=== PATIENT | male | born 1965 | race African-American/Black ===

== ENCOUNTER 2019-11-07 19:43 | Inpatient (IN) | payer BC, OTHER ==
[~2019-11-07] VITALS: Ht 175.3 cm; Wt 122.0 kg
[2019-11-07 19:44] VITALS: BP 92/64
[2019-11-07 19:59] LABS: BASOPHILS 0.9 % (0.0-2.0); EOSINOPHILS 2.4 % (0.0-3.0); HEMATOCRIT 45.7 % (42.0-52.0); HEMOGLOBIN 14.9 gm/dL (14.0-18.0); LYMPHOCYTES 37.9 % (24.0-44.0); MCH 26.6 pg (26.0-34.0); MCHC 32.6 g/dL (28.0-37.0); MCV 81.6 fL (80.0-100.0); MONOCYTES 5.7 % (1.0-8.0); POLYS 53.1 % (36.0-66.0); RDW 14.1 % (10.5-14.5); WBC 13.1 thou/uL (4.0-11.0)
[2019-11-07 20:06] LABS: ANION GAP 13 mmol/L (7-16); BUN 28 mg/dL (7-18); CALCIUM 9.5 mg/dL (8.5-10.1); CHLORIDE 103 mmol/L (98-107); CO2 23 mmol/L (21-32); CREATININE 1.8 mg/dL (0.7-1.3); GLUCOSE 280 mg/dL (74-106); POTASSIUM 3.8 mmol/L (3.5-5.1); SODIUM 139 mmol/L (136-145)
[2019-11-07 20:16] LABS: DIRECT BILIRUBIN < 0.1 mg/dL (<0.1-0.2); MAGNESIUM 1.8 mg/dL (1.8-2.4); SGOT 37 U/L (15-37); SGPT 45 U/L (30-65); TOTAL BILIRUBIN 0.5 mg/dL (0.2-1.0); TOTAL PROTEIN 7.6 g/dL (6.4-8.2); TROPONIN-I <0.06 ng/mL (<0.06)
[2019-11-07 20:18] LABS: PLATELET COUNT 240 thou/uL (150-400)
[2019-11-07 20:19] LABS: LARGE PLATELETS RARE
--- NOTE | 2019-11-07 21:27 | NUR ---
PATIENT'S FRIEND "A-ONE" CALLED AND WOULD LIKE THE PATIENT TO RETURN HIS CALL SOON POSSIBLE
[2019-11-07 22:14] VITALS: BP 89/62
[2019-11-07 22:48] VITALS: BP 126/72
[2019-11-07 22:54] VITALS: BP 87/39
[2019-11-07 23:05] LABS: CHOLESTEROL 170 mg/dL (<200); HDL CHOLESTEROL 32 mg/dL (>40); LDL CHOLESTEROL 104 mg/dL (<100); TC:HDL 5.3 Ratio (Not establshd); TRIGLYCERIDE 174 mg/dL (<150); VLDL 35 mg/dL (<40)
[2019-11-07 23:15] LABS: SERUM ASSESSMENT Clear
[2019-11-08] MEDS ORDERED: LISINOPRIL-HCT1 EAC1 PO (00:03)
[2019-11-08] MEDS ORDERED: ALLOPURINOL 10100 M3 PO (00:04)
[2019-11-08] MEDS ORDERED: NAPROXEN500 MG PO (00:05)
[2019-11-08] MEDS ORDERED: ESCITALOPRA5 MG/5 ML PO (00:06)
[2019-11-08] MEDS ORDERED: SIMVASTATIN80 MG PO (00:07)
[2019-11-08 02:39] LABS: ABSOLUTE NEUTROPHILS 8.3 thou/uL (1.4-8.2); BASOPHILS 0.2 % (0.0-2.0); EOSINOPHILS 0.1 % (0.0-3.0); HEMATOCRIT 40.4 % (42.0-52.0); HEMOGLOBIN 13.1 gm/dL (14.0-18.0); LYMPHOCYTES 13.5 % (24.0-44.0); MCH 26.4 pg (26.0-34.0); MCHC 32.4 g/dL (28.0-37.0); MCV 81.3 fL (80.0-100.0); MONOCYTES 5.7 % (1.0-8.0); PLATELET COUNT 163 thou/uL (150-400); POLYS 80.5 % (36.0-66.0); RBC 4.98 mil/uL (4.50-6.00); RDW 14.2 % (10.5-14.5); WBC 10.4 thou/uL (4.0-11.0)
[2019-11-08 02:44] LABS: CALCIUM 8.5 mg/dL (8.5-10.1); CREATININE 1.8 mg/dL (0.7-1.3); MAGNESIUM 1.8 mg/dL (1.8-2.4); POTASSIUM 4.6 mmol/L (3.5-5.1)
[2019-11-08 04:01] VITALS: BP 107/72
--- NOTE | 2019-11-08 06:15 | NUR ---
ASSUMED CARE OF PATIENT AFTER BEING TRANSFERRED FROM ER TO . PATIENT ON AMIODORONE DRIP CURRENTLY RUNNING AT 0.5MG/MIN AND HAS BEEN MONITORED IN SINUS RHYTHM THROUGHOUT NOC. PATIENT CONTINUES ON ROOM AIR AND NO SOA. PATIENT IS STEADY AND ABLE TO AMBULATE WITHOUT ASSISTANCE. NO PAIN REPORTED BY PATIENT. PRATIENT PROGRESSING WELL TOWARDS GOALS.
[2019-11-08 07:52] VITALS: BP 110/60
--- NOTE | 2019-11-08 09:35 | EKG ---
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 : 1965 Requested By: Christina Mcneal Order Number: [id number] MD: Rl Floyd Measurements Intervals [place] Rate: 84 P: 45 [place]: 160 QRS: 99 QRSD: 105 T: -32 QT: 386 QTc: 457 Interpretive Statements Sinus rhythm Multiform ventricular premature complexes Borderline right axis deviation Repol abnrm, severe global ischemia (LM/MVD) No previous ECG available for comparison Electronically Signed On 11-08-2019 9:33:40 CDT by Rl Floyd [email or web address] <ELECTRONICALLY SIGNED> By: Rl Floyd MD 11/08/1931 07 07 Rl Floyd MD /EPI
--- NOTE | 2019-11-08 09:35 | EKG ---
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: ANGELY : 1965 Requested By: Christina Mcneal Order Number: [id number] MD: Rl Floyd Measurements Intervals [place] Rate: 256 P: -78 MT: 136 QRS: 247 QRSD: 60 T: -86 QT: 236 QTc: 488 Interpretive Statements Wide complex tachycardia Possible VT vs SUPRAVENTRICULAR TACHYCARDIA with aberration Lead(s) aVR,V3 were not used for morphology analysis No previous ECG available for comparison Electronically Signed On 11-08-2019 9:33:18 CDT by Rl Floyd [email or web address] <ELECTRONICALLY SIGNED> By: Rl Floyd MD 11/08/1931 53 53 Rl Floyd MD /EPI
--- NOTE | 2019-11-08 09:36 | EKG ---
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
[2019-11-08 11:10] LABS: CALCIUM 8.9 mg/dL (8.5-10.1); CREATININE 1.3 mg/dL (0.7-1.3); POTASSIUM 4.2 mmol/L (3.5-5.1)
[2019-11-08 11:47] VITALS: BP 107/72
--- NOTE | 2019-11-08 12:01 | 2DMMODE ---
[facility] [place] [address] 2 D/M-MODE ECHOCARDIOGRAM Name: JOVANNA STARK Room #: 219-P ADM IN M.R.#: [id number] Admission: 11/07/19 Attend Phys: Son Huertas MD Discharge: Date of : 69 Report #: [id number] THIS REPORT FOR: cc: FAM - No family physician/PCP FAM - No family physician/PCP Rl Floyd MD ~ APPROVED REPORT Study performed: 11/08/2019 10:25:40 EXAM: Comprehensive 2D, Doppler, and color-flow Echocardiogram Patient Location: Bedside Room #: 219 Status: routine BSA: 2.43 HR: 66 bpm BP: 110/60 mmHg Rhythm: NSR Other Information Study Quality: Adequate Indications Chest Pain Hypertension/HDD HLD, Hx Vtach 2D Dimensions RVDd: 33.12 mm IVSd: 8.52 (7-11mm) LVOT Diam: 26.52 (18-24mm) LVDd: 59.52 mm PWd: 13.07 (7-11mm) Ascending Ao: 37.25 (22-36mm) LVDs: 54.50 (25-40mm) Aortic Root: 40.85 mm IVC: 20.00 mm Volumes Left Atrial Volume (Systole) Single Plane 4CH: 80.02 mL Single Plane 2CH: 78.46 mL LA ESV Index: 36.00 mL/m2 Aortic Valve AoV Peak Sukhjinder.: 0.90 m/s AO Peak Gr.: 3.21 mmHg LVOT Max P.78 mmHg LVOT Max V: 0.67 m/s [facility] [address] [address] 2 D/M-MODE ECHOCARDIOGRAM Name: JOVANNA STARK Room #: 219-P [facility] IN .R.#: [id number] Admission: 11/07/19 Attend Phys: Son Huertas MD Discharge: Date of : 69 Report #: [id number] ASIM Vmax: 4.11 cm2 Mitral Valve E/A Ratio: 1.7 MV Decel. Time: 145.92 ms MV E Max Sukhjinder.: 0.68 m/s MV A Sukhjinder.: 0.40 m/s MV PHT: 42.32 ms IVRT: 86.51 ms Pulmonary Valve PV Peak Sukhjinder.: 0.75 m/s PV Peak Gr.: 2.26 mmHg Tricuspid Valve TR Peak Sukhjinder.: 2.37 m/s RAP Estimate: 5.00 mmHg TR Peak Gr.: 22.47 mmHg PA Pressure: 27.00 mmHg Left Ventricle Left ventricle is dilated. There is normal left ventricular wall thickness. Left ventricular ejection fraction is moderate to severely decreased. LVEF is 25%. Right Ventricle The right ventricle is normal size. The right ventricular systolic function is normal. Atria Left atrium is mildly dilated. The right atrium size is normal. Aortic Valve The aortic valve is normal in structure. Trace aortic regurgitation. There is no aortic valvular stenosis. Mitral Valve The mitral valve is normal in structure. Trace to mild mitral regurgitation. No evidence of mitral valve stenosis. Tricuspid Valve The tricuspid valve is normal in structure. Trace tricuspid regurgitation. PAP is estimated at 27 mmHg. Unable to assess PA pressure. Pulmonic Valve The pulmonary valve is normal in structure. Pulmonic valve is grossly [facility] [address] [place] [address] 2 D/M-MODE ECHOCARDIOGRAM Name: [place] Room #: 219-P ADM IN M.R.#: [id number] Admission: 11/07/19 Attend Phys: Son Huertas MD Discharge: Date of : 69 Report #: [id number] normal in structure. Mild pulmonic regurgitation. Great Vessels The aortic root is normal in size. IVC is normal in size and collapses >50% with inspiration. The inferior vena cava is dilated with a decrease in inspiratory collapse. The inferior vena cava is dilated with no inspiratory collapse. The inferior vena cava is not well visualized. Pericardium There is no pericardial effusion. <Conclusion> Left ventricle is dilated. There is normal left ventricular wall thickness. Left ventricular ejection fraction is moderate to severely decreased. LVEF is 25%. The right ventricle is normal size. The aortic valve is normal in structure. The mitral valve is normal in structure. Trace to mild mitral regurgitation. IVC is normal in size and collapses >50% with inspiration. The inferior vena cava is dilated with a decrease in inspiratory collapse. The inferior vena cava is dilated with no inspiratory collapse. The inferior vena cava is not well visualized. There is no pericardial effusion. <ELECTRONICALLY SIGNED> By: Rl Floyd MD 11/08/19 1159 1159 1159 Rl Floyd MD /INF
--- NOTE | 2019-11-08 19:38 | NUR ---
ASSUMED CARE OF PATIENT AT 0700. ASSESSMENT CHARTED. PATIENT NPO IN AM, CLEAR LIQUID FOR LUNCH AND CHOSE NOT TO EAT, HH/CARB CONTROL DINNER. DENIES CHEST PAIN OR PALPITATIONS. ACCU CHECK AC&HS. AMIO IV CONTINUOUS. HR 70'S. CARDIAC CATH PERFORMED TODAY WITHOUT INTERVENTION. RIGHT GROIN SITE, FREE OF DRAINAGE, HEMATOMA OR EDEMA. OFF BEDREST AT 1700. POST PROCEDURE FLOW SHEET KEPT AND PLACED IN THE CHART. ECHO PERFORMED. PATIENT TO CONTINUE WITH POC.
[2019-11-08 20:26] VITALS: BP 117/78
[2019-11-08 21:52] LABS: URINE BILIRUBIN NEGATIVE (Negative); URINE BLOOD NEGATIVE (Negative); URINE CLARITY CLEAR; URINE COLOR YELLOW; URINE GLUCOSE-RANDOM* 3+ (Negative); URINE KETONES NEGATIVE (Negative); URINE LEUKOCYTES-REFLEX NEGATIVE (Negative); URINE NITRITE-REFLEX NEGATIVE (Negative); URINE PROTEIN (DIPSTICK) NEGATIVE (Negative); URINE SPECIFIC GRAVITY 1.025 (1.005-1.035); URINE UROBILINOGEN 0.2 E.U./dl (0.2-1.0)
[2019-11-09 00:44] VITALS: BP 100/63
[2019-11-09 02:34] LABS: CALCIUM 8.3 mg/dL (8.5-10.1); CREATININE 1.2 mg/dL (0.7-1.3); POTASSIUM 4.2 mmol/L (3.5-5.1)
--- NOTE | 2019-11-09 04:49 | NUR ---
PATIENT ASSESSED AND IS ALERT X 4. SKIN WARM AND DRY. RESP EVEN AND UNLABORD. UP TO BATHROOM VOIDING WELL. RIGHT GROIN SOFT AND HAS NO HEMATOMA OR BRUISING NOTED. TELE SHOWS NSR WITH PAC AND PVC. DENIES ANY PAIN. HAS BILATERAL 1+ EDEMA NOTED. LUNGS CTA. L AC FLUSHES WELL AND RIGHT AC FLUSHES WELL. CONT A AMIO GTT ORDERED. IV SITE HEALTHY. NO O2. NO SKIN ISSUES. LUNGS CTA. VOIDS PER URINAL ALSO. ON HEART HEALTHY DIET. CONT PLAN OF CARE. DENIES ANY CHEST PAIN. CONT TO MONITOR PATIENT. NITRO PASTE Q 6 HOURS .
[2019-11-09 05:38] LABS: GLYCOHEMOGLOBIN (HGB A1C) 10.3 % (4.8-5.6)
[2019-11-09 05:45] VITALS: BP 127/90
[2019-11-09 07:39] VITALS: BP 114/68
--- NOTE | 2019-11-09 11:33 | EKG ---
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 : 1965 Requested By: Tamiko Armendariz Order Number: [id number] MD: Rl Floyd Measurements Intervals [place] Rate: 69 P: 45 MS: 166 QRS: 57 QRSD: 91 T: 49 QT: 435 QTc: 466 Interpretive Statements Sinus rhythm Paired ventricular premature complexes Probable left atrial enlargement Compared to ECG 11/07/2019 21:43:27 Ventricular premature complex(es) now present Myocardial infarct finding no longer present Electronically Signed On 11-09-2019 11:31:03 CDT by Rl Floyd [email or web address] <ELECTRONICALLY SIGNED> By: Rl Floyd MD 11/09/19 1131 0944 Rl Floyd MD /EPI
[2019-11-09 11:35] VITALS: BP 130/92
[2019-11-09 15:42] VITALS: BP 133/86
--- NOTE | 2019-11-09 16:59 | NUR ---
ASSUMED CARE OF PATIENT AT 0700. ASSESSMENT CHARTED. PATIENT DENIES ANY CHEST PAIN OR DISCOMFORT. COVID TEST NEGATIVE. PENDING ICD PLACEMENT TOMORROW. CONSENT SIGNED. PATIENT TO BE NPO AT MIDNIGHT. ENDO CONSULT PLACED. IV AMIO DRIP. SR ON MONITOR WITH INT PVC/PAC. PATIENT TO CONTINUE WITH POC.
[2019-11-09 19:58] VITALS: BP 131/81
--- NOTE | 2019-11-09 23:15 | NUR ---
PT AMBULATING TO BATHROOM INDEPENDENTLY AND IS TOLERATING WELL. DENIES PAIN. PLAN FOR PLACEMENT OF IVC FILTER 11/09. RESTING COMFORTABLY. NO NEEDS VOICED. CALL LIGHT WITHIN REACH. FREQUENT OBSERVATION.
[2019-11-10 04:07] LABS: GLYCOHEMOGLOBIN (HGB A1C) 10.4 % (4.8-5.6)
[2019-11-10 04:15] LABS: PROTIME 10.7 Seconds (9.3-11.4)
[2019-11-10 04:46] LABS: ABSOLUTE NEUTROPHILS 4.3 thou/uL (1.4-8.2); BASOPHILS 0.4 % (0.0-2.0); EOSINOPHILS 2.6 % (0.0-3.0); HEMATOCRIT 40.9 % (42.0-52.0); HEMOGLOBIN 13.5 gm/dL (14.0-18.0); LYMPHOCYTES 21.9 % (24.0-44.0); MCH 26.8 pg (26.0-34.0); MCV 81.2 fL (80.0-100.0); MONOCYTES 8.6 % (1.0-8.0); PLATELET COUNT 152 thou/uL (150-400); POLYS 66.5 % (36.0-66.0); RBC 5.04 mil/uL (4.50-6.00); RDW 13.7 % (10.5-14.5); WBC 6.5 thou/uL (4.0-11.0)
[2019-11-10 05:00] LABS: CALCIUM 8.6 mg/dL (8.5-10.1); CREATININE 1.2 mg/dL (0.7-1.3); POTASSIUM 4.1 mmol/L (3.5-5.1)
--- NOTE | 2019-11-10 05:10 | NUR ---
ASSUMED PT CARE AT 0000. REPORT OBTAINED FROM LEAVING NURSE. REPORT OBTAINED. NO SIGN OF DISTRESS NOTED IN PT. PT IS NPO AFTER MN FOR AN AICD PLACEMENT. PT VERBALIZES UNDERSTANDING. DENIES ANY PAIN. CONTINUE TO MONITOR PATIENT. DENIES ANY FURTHER NEEDS AT THIS TIME.
[2019-11-10 05:47] VITALS: BP 139/104
[2019-11-10 08:00] VITALS: BP 129/86
--- NOTE | 2019-11-10 17:12 | NUR ---
PT ARRIVED BACK FROM ICD PLACEMENT AT APPROX 1600. PT ORIENTED, DROWSY. VSS EXCEPT BP ELEVATED. WILL TREAT WITH BP MEDS PER ORDERS. LEFT CHEST INCISION WELL APPROXIMATED, NO DRAINAGE, NO HEMATOMA. PT DENIES PAIN. O2 SATS WNL ON ROOM AIR. POST PROCEDURE VS INITATED. IMMOBILIZER IN PLACE- WILL FOLLOW ORDERS REGARDING MOBILITY. PT CURRENTLY RESTING IN BED. VSS. IN NO DISTRESS. WILL CONT TO MONITOR. WILL PASS ON REPORT TO SHARI POND.
[2019-11-10 19:39] VITALS: BP 165/85
[2019-11-11 00:45] VITALS: BP 128/77
[2019-11-11 04:45] VITALS: BP 136/78
[2019-11-11 05:49] LABS: CALCIUM 8.4 mg/dL (8.5-10.1); CREATININE 1.2 mg/dL (0.7-1.3); POTASSIUM 3.9 mmol/L (3.5-5.1)
[2019-11-11 08:00] VITALS: BP 146/102
--- NOTE | 2019-11-11 08:15 | NUR ---
A/O X 4.UP TO THE BATHROOM.LEFT ARM IMMOBILIZER MAINTAINED IN PLACE.ON AMIO GTT.DENIES PAIN.MONITOR SHOWS SR.POC CONTINUED.
[2019-11-11] MEDS ORDERED: CARVEDILOL3.125 MG PO ×2 (09:47→09:52)
[2019-11-11] MEDS ORDERED: ASA81BEC PO (09:47)
[2019-11-11] MEDS ORDERED: LISINOPRIL5 MG PO (09:51)
[2019-11-11] MEDS ORDERED: PACERONE 200 M200 M1 PO (09:53)
--- NOTE | 2019-11-11 11:31 | HC ---
[facility] [place] [address] CONSULTATION Name: JOVANNA STARK Room #: 219-P ADM IN M.R.#: [id number] Admission: 11/07/19 Attend Phys: Tal Bourgeois MD Discharge: Date of : 69 Report #: [id number] THIS REPORT FOR: cc: SURI Akers family physician/PCP SURI Akers family physician/PCP Rachel Ventura MD ~ CC: [facility] physician/PCP Tal Bourgeois DATE OF SERVICE: 11/10/2019 CONSULTING PHYSICIAN: Dr. Huertas. REASON FOR CONSULTATION: Uncontrolled type 2 diabetes mellitus, new diagnosis of type 2 diabetes mellitus. HISTORY OF PRESENT ILLNESS: This is a 54-year-old male patient whose medical background is significant for the issues of bronchitis, cardiac arrhythmia, hypertension, hyperlipidemia as well as obesity and obstructive sleep apnea. The patient presented to [facility]'s ER with complaints of shortness of breath, palpitations as well as chest discomfort. The patient was found to have the ventricular tachycardia on arrival and was admitted for further care and monitoring. He underwent a cardioversion shortly after admission and later on was found to have an ejection fraction of 20-25% as well as a recently positive troponin level. The patient does not have a prior diagnosis of type 2 diabetes mellitus, although he spoke vaguely of borderline blood glucose in the past. He does have a family history of type 2 diabetes mellitus. He notes that he has experienced excessive thirst, polyuria and fatigue over the past 2-3 weeks. The patient is known to have hypertension, hyperlipidemia and is on active therapy for both issues. REVIEW OF SYSTEMS: CONSTITUTIONAL: Fatigue, tiredness, but not fever or chills or significant body weight changes. HEENT: Negative for sore throat, sinus pain or ear drainage. PULMONARY: Shortness of breath and cough, but not hemoptysis. CARDIAC: Palpitations, baseline issues with intermittent cardiac arrhythmias, chest pain, but not syncope or presyncope. GASTROINTESTINAL: Intermittent issues with abdominal discomfort, abdominal distention, nausea, but no vomiting. NEUROLOGY: Negative for loss of consciousness, headaches, seizure activity. SKIN: Negative for rash, discoloration, or ongoing issues with ulceration. [address] [address] CONSULTATION Name: PUNTA GORDALEIPSIC Room #: 219-P [facility] IN M.R.#: [id number] Admission: 11/07/19 Attend Phys: Tal Bourgeois MD Discharge: Date of : 69 Report #: [id number] PSYCHIATRIC: Negative for delusions, hallucinations. Otherwise, review of systems noncontributory other than those mentioned in HPI. PAST MEDICAL HISTORY: 1. Asthma. 2. Bronchitis. 3. Cardiac arrhythmia. 4. Hypertension. 5. Hyperlipidemia. 6. Obesity. 7. Obstructive sleep apnea. 8. Gout. 9. Depression. OUTPATIENT MEDICATIONS: Include lisinopril/hydrochlorothiazide 20/12.5 mg 1 daily, allopurinol 100 mg 2 tablets daily, Naprosyn 500 mg p.r.n., escitalopram 10 mg daily and simvastatin 80 mg daily. ALLERGIES: No known drug allergies. FAMILY HISTORY: Noted for type 2 diabetes mellitus. SOCIAL HISTORY: He is single. Denies use of tobacco, alcohol or illicit drugs. PHYSICAL EXAMINATION: GENERAL: Pleasant -[place] male patient who is not in apparent pain or distress. VITAL SIGNS: Blood pressure is 129/86 mmHg, heart rate is 91 beats per minute, respiration 18 per minute, temperature 37.2 degrees Celsius. CONSTITUTIONAL: The patient is lying in bed supine, seems comfortable, not in pain or distress. HEENT: Anicteric sclerae. Intact extraocular motions. NECK: Supple, without JVD, carotid bruits or lymphadenopathy. I do not appreciate thyromegaly. CHEST: Noted for moderate entry bilaterally with scattered rales. No crackles. HEART: Regular rate and rhythm without murmurs or gallops. ABDOMEN: Soft, lax. No tenderness or organomegaly. Has active bowel sounds. EXTREMITIES: Lower extremity exam is noted for trace edema. No skin breaks or ulcerations. NEUROLOGIC: Awake, alert and oriented to time, place and person. The remainder of his examination is nonfocal. PSYCHIATRY: Pleasant, interactive. Normal mood and affect. LABORATORY RESULTS: Blood glucose on arrival was as high as 345 mg/dL. The patient has had multiple readings over 200 mg/dL, but went as low as 149 mg/dL. Otherwise, sodium 136, potassium 4.1, chloride 104, CO2 of 24, anion gap of 8, [address] [address] CONSULTATION Name: JOVANNA STARK Room #: 219-P [facility] IN M.R.#: [id number] Admission: 11/07/19 Attend Phys: Tal Bourgeois MD Discharge: Date of : 69 Report #: [id number] BUN 16, creatinine 1.2, AST 37, total bilirubin 0.5, direct bilirubin ____ 0.1, calcium 8.6, magnesium 1.8, alkaline phosphatase 67, ALT 45, total protein 7.6, albumin 4.0. EGFR 77. Troponin 2.72. Total cholesterol 170, triglycerides 174, HDL 32, LDL 104. White blood count 6.5, hemoglobin 13.5, hematocrit 40.9, platelets 152. Hemoglobin A1c 10.3. TSH 2.35. ASSESSMENT AND PLAN: Type 2 diabetes mellitus. The patient's current laboratory data including the documentation of multiple readings well over 200 mg/dL as well as his hemoglobin A1c of 10.3% provide a firm diagnosis of type 2 diabetes mellitus. The patient was counseled about the pathogenesis of type 2 diabetes mellitus as well as about its implications and the necessity of achieving and maintaining adequate glycemic control to prevent future complications. The patient responded well to treatment with low intensity Humalog supplemental scale and managed to keep a fair amount of his blood glucose checks under 180 mg/dL virtually without scheduled therapy. Eventually, the patient would be a very good candidate for combination of metformin and empagliflozin (Jardiance), which would have the added value of reducing future CVD events in this patient with established cardiovascular disease. In the immediate setting, I would like to avoid both so as to make ample space and a safe outlook for intervention that could be necessary during this hospital stay including pacemaker placement that is scheduled for later today. I will start Tradjenta monotherapy today and continue to support him with Humalog supplemental scale low intensity as well as monitor blood glucose values a.c. and at bedtime. The plan of starting metformin and Jardiance will be postponed until we have a definitive discharge plan. Hypertension. The patient's level of blood pressure control is adequate. He is to continue with the same. Hyperlipidemia. The patient is maintained on high dose simvastatin therapy. His LDL cholesterol is at 103 mg/dL. I agree with the conversion to atorvastatin 80 mg at bedtime with the hope of achieving target LDL control of 70 mg/dL or less given the documentation of type 2 diabetes mellitus and cardiovascular disease. Nonsustained V-tach. The patient is undergoing pacemaker placement later today by Dr. Floyd. I certainly appreciate this consultation by Dr. Huertas. <ELECTRONICALLY SIGNED> By: Rachel Ventura MD 11/11/19 1131 0928 1153 Rachel Ventura MD /nt
[2019-11-11 12:00] VITALS: BP 167/96
[2019-11-11] MEDS ORDERED: LIPITOR80 MG PO (12:50)
[2019-11-11] MEDS ORDERED: JARDIANCE10 MG PO (12:56)
[2019-11-11] MEDS ORDERED: GLUMETZA500 PO (12:56)
[2019-11-11 13:13] VITALS: BP 167/96
--- NOTE | 2019-11-11 14:04 | P ---
[facility] [place] [address] PROCEDURE REPORT Name: JOVANNA STARK Room #: 219-P ADM IN M.R.#: [id number] Admission: 11/07/19 Attend Phys: Tal Bourgeois MD Discharge: Date of : 69 Report #: [id number] THIS REPORT FOR: cc: SURI - No family physician/PCP SURI - No family physician/PCP Rl Floyd MD ~ CC: [facility] physician/PCP Tal Bourgeois ICD IMPLANTATION PREOPERATIVE DIAGNOSES: 1. Sustained monomorphic ventricular tachycardia. 2. Nonischemic cardiomyopathy. HISTORY: The patient is a 54-year-old -[place] male with a history of hypertension and hyperlipidemia and diabetes, who presented with sustained monomorphic ventricular tachycardia that required DC cardioversion in the Emergency Room. He had a troponin that was elevated at 5.6 and underwent elective cardiac catheterization. Prior to the cath, he had an echocardiogram demonstrating an ejection fraction of 25%. His cardiac catheterization showed normal coronary arteries. The patient was treated with IV amiodarone and has not had further episodes of VT. He is here for dual-chamber ICD implantation for secondary prevention of sudden cardiac . ANESTHESIA: The patient underwent MAC anesthesia with no anesthesia-related complications. DESCRIPTION OF PROCEDURE: The patient underwent informed consent. We discussed the details of the procedure including the risks, which include but not limited to bleeding, infection, vascular damage, cardiac perforation, pneumothorax. He understood these risks and is willing to proceed. The patient was brought to the EP laboratory in a fasting and sedated state, prepped and draped in a sterile fashion. He underwent a venogram showing patency of the left axillary vein and received IV antibiotics for antibiotic prophylaxis. Next, lidocaine was injected below the level of the left clavicle. Incision was made, pocket was created over the prepectoral fascia and access was obtained twice to the left axillary vein using the extrathoracic approach. Sheaths were positioned using the modified Seldinger technique. Next, a lead was placed in the right ventricular apex. I did have to look throughout the RV apex and RV apical septum for decent R waves as they were low in a lot of segments. Eventually, I did find R waves that were around 8-10 millivolts. The lead was positioned here and there was adequate pacing and sensing thresholds. Next, atrial lead was positioned in the right atrial appendage with adequate pacing and sensing thresholds. The leads were sutured to the prepectoral fascia. Device was connected, tested and found to be functioning normally and [address] [address] PROCEDURE REPORT Name: JOVANNA STARK Room #: 219-P ADM IN M.R.#: [id number] Admission: 11/07/19 Attend Phys: aTl Bourgeois MD Discharge: Date of : 69 Report #: [id number] the pocket was then irrigated with vancomycin and closed in 2 layers using 2-0 for the deep layer, 3-0 for the mid layer and surgical glue was placed to outer skin layer. The patient awoke neurologically and hemodynamically intact. No complications and no significant bleeding. Of note, the patient did have a short run of SVT during the procedure, which I was able to pace terminate. The implanted ICD was a Medtronic, model #EJYC5D4, serial #[id number]. Atrial lead was a Medtronic model #5076, 58 cm, serial #[id number]. RV lead was a Medtronic model #6947, 62 cm, serial #[id number]. The atrial lead demonstrated a P-wave of 6.6 millivolts, pacing impedance 532 ohms, pacing threshold 1.25 volts at 0.4 milliseconds. RV lead demonstrated R-wave of 8.6 millivolts, pacing impedance 475 ohms and pacing threshold 0.75 volts at 0.4 milliseconds. The RV and SVC coils were within normal limits in terms of the impedances. The device was programmed to the DDDR 60-130 mode. The VT zone was set at 170-210 beats per minute with 3 rounds of burst followed by 3 rounds of ramp followed by max output shocks. VF zone was set at greater than 240 beats per minute. The VT monitor zone was set at 140 beats per minute. CONCLUSIONS: Successful dual-chamber ICD implantation for secondary prevention of sudden cardiac . RECOMMENDATIONS: The patient will go back to the CCU. We will continue with IV amiodarone loading. Likely discharge tomorrow on oral amiodarone. <ELECTRONICALLY SIGNED> By: Rl Floyd MD 11/11/19 1404 1415 27 Rl Floyd MD /nt
--- NOTE | 2019-11-11 14:25 | NUR ---
ASSUMED CARE PT SHIFT CHANGE. ASSESSMENT CHARTED. MEDS GIVEN PER AUG. PT ALERT AND ORIENTED.VSS DENIES PAIN. O2 SATS WNL ON ROOM AIR. LEFT CHEST INCISION SITE CDI NO HEMATOMA.WELL APPROXIMATED. DC ORDERS ACKNOWLEDGED AND IMPLEMENTED. PT RELUCATANT IN LEAVING, CARDIOLOGY AND HOSPITALIST NOTIFIED. PT EDUCATED ON NORMAL VS, PT ON NECESSARY MEDICATIONS. PT AGREEABLE TO DC. PAPERWORK DISCUSSED WITH PT. COMMUNICATES UNDERSTANDING. IV REMOVED. TELE REMOVED. PT LEFT UNIT WITH ALL BELONGINGS,
--- NOTE | 2019-11-12 02:27 | CATHLAB ---
[facility] [place] [address] INVASIVE PROCEDURE REPORT Name: JOVANNA STARK Room #: 219-P DIS IN M.R.#: [id number] Admission: 11/07/19 Attend Phys: Tal Bourgeois MD Discharge: 11/11/19 Date of : 69 Report #: [id number] THIS REPORT FOR: cc: FAM - No family physician/PCP FAM - No family physician/PCP Fredy Tam MD ~ APPROVED REPORT Study performed: 11/08/2019 13:22:18 Patient Details Patient Status: In-Patient Room #: The patient is a 54 year-old male Event Personnel Fredy Tam Combination Saw Operator, Brooke Leonardo RN RN, Isabel Cagle RTR Mahendra Núñez Ja'net RTR Monitor Procedures Performed Left Heart Cath w/or w/o Coronaries [id number] [facility] Art Access - R femoral artery* 93580 Initial Mod Sed Same Phys/QHP Gr5y 823063 57519 Mod Sed Same Phys/QHP Ea 147393 Hemostasis with Manual pressure, supervision of conscious sedation Procedure Narrative The patient was brought urgently to the Cardiac Catheterization Laboratory and was prepped and draped in a sterile manner. The Right Groin^ was infiltrated with 1% Lidocaine subcutaneous anesthesia. A PINNACLE 4FR Sheath #[id number] sheath was inserted into the RFA^. Coronary angiography was performed using coronary diagnostic catheters. The right coronary system was accessed and visualized with a JR4 catheter. The left coronary system was accessed and visualized with a JL4 catheter. The left ventricle was accessed and visualized with a PIGTAIL catheter. Hemostasis was obtained with manual pressure following sheath removal without any complications. The patient tolerated the procedure well and there were no complications associated with the procedure. There was no hematoma. Intraoperative Conscious Sedation Sedation start time: 14:11 Case end Time: 14:49 Versed 2 mg [facility] [place] [address] INVASIVE PROCEDURE REPORT Name: JOVANNA STARK Room #: 219-P [facility] [place] ..#: [id number] Admission: 11/07/19 Attend Phys: Tal Bourgeois, Discharge: 11/11/19 Date of : 69 Report #: [id number] Fluoro Time: 8.10 minutes Dose: DAP 07756.10 cGycm2 1095 mGy Contrast Type and Amount: Omnipaque 85 ml Coronary Angiography The patient's coronary anatomy is right dominant. Diagnostic Cath Left Main large caliber of normal origin bifurcates into left anterior descending and left circumflex vessels. it is free of significant high grade lesions. LAD large caliber type III vessel coarsing in the anterior interventricular sulcus giving rise to diagonal and septal branches. there is no high grade lesions noted Diagonal 1 diminuitive disease free vessel Circumflex moderate to large caliber vessel coarsing along the lateral aspect of the left ventricle free of highgrade lesions. the vessel termonates as a posterior wall vessel small in caliber OM1 moderate caliber long vessel without significant high grade lesions. Right Coronary large caliber vessel of normal origin giving rise to a small caliber pda. all free of significant lesions R PDA small caliber rapidly tapering vessel with significant obstruction Left Ventriculography Left Ventriculography was not performed. Hemodynamics The aortic pressure is 129/91 mmHg with a mean of mmHg. The left ventricular pressure is 123/11 mmHg with a mean of mmHg. The left ventricular end diastolic pressure is 34 mmHg. There was no gradient across the aortic valve upon pullback. Conclusion 1. normal coronary arteries 2. normal hemodynamics Recommendations Cardiac Risk Reduction Program <ELECTRONICALLY SIGNED> By: Fredy Tam MD 11/12/19224 4 4 Fredy Tam MD /INF
== END 2019-11-11 14:00 | disposition home or self-care (01) | DRG 243 ==
LOC: ER 19:43 → EROBS 22:07 → 2N 22:07 → ENTRNSPT 11-11 13:40 → 2N 11-11 14:00
PROVIDERS: Emergency Medicine; Internal Medicine Cardiovascular Disease; Nurse Practitioner; Nurse Practitioner Family; ADMIT Internal Medicine
PROC: 02HK3JZ Insertion of Pacemaker Lead into Right Ventricle, Percutaneous Approach (ICD-10-PCS; principal; 2019-11-07)
PROC: 0JH606Z Insertion of Pacemaker, Dual Chamber into Chest Subcutaneous Tissue and Fascia, Open Approach (ICD-10-PCS; principal; 2019-11-07)
PROC: B51N1ZZ Fluoroscopy of Left Upper Extremity Veins using Low Osmolar Contrast (ICD-10-PCS; principal; 2019-11-07)
DX: I21.4 Non-ST elevation (NSTEMI) myocardial infarction (principal); I47.2 Ventricular tachycardia; N17.9 Acute kidney failure, unspecified; E72.51 Non-ketotic hyperglycinemia; I42.8 Other cardiomyopathies; J45.909 Unspecified asthma, uncomplicated; I10 Essential (primary) hypertension; E78.5 Hyperlipidemia, unspecified; E66.9 Obesity, unspecified; G47.33 Obstructive sleep apnea (adult) (pediatric); F32.9 Major depressive disorder, single episode, unspecified; I95.9 Hypotension, unspecified; R11.0 Nausea; E78.00 Pure hypercholesterolemia, unspecified; R73.9 Hyperglycemia, unspecified; Z20.828 Contact with and (suspected) exposure to other viral communicable diseases; Z68.39 Body mass index [BMI] 39.0-39.9, adult; Z82.3 Family history of stroke; Z90.89 Acquired absence of other organs; Z83.3 Family history of diabetes mellitus; Z84.89 Family history of other specified conditions; Z82.49 Family history of ischemic heart disease and other diseases of the circulatory system; Z91.14 Patient's other noncompliance with medication regimen; Z79.899 Other long term (current) drug therapy; Z03.818 Encounter for observation for suspected exposure to other biological agents ruled out

== ENCOUNTER 2019-11-16 18:49 | Emergency (ER) | payer BC, OTHER ==
[~2019-11-16] VITALS: Ht 175.3 cm; Wt 129.7 kg
[~2019-11-16 18:49] MED LIST: ALLOPURINOL 10100 M3 PO; ASA81BEC PO; CARVEDILOL3.125 MG PO; ESCITALOPRA5 MG/5 ML PO; GLUMETZA500 PO; JARDIANCE10 MG PO; LIPITOR80 MG PO; LISINOPRIL-HCT1 EAC1 PO; LISINOPRIL5 MG PO; NAPROXEN500 MG PO; PACERONE 200 M200 M1 PO; SIMVASTATIN80 MG PO
[2019-11-16 19:34] LABS: ABSOLUTE NEUTROPHILS 8.5 thou/uL (1.4-8.2); BASOPHILS 0.8 % (0.0-2.0); EOSINOPHILS 0.7 % (0.0-3.0); HEMATOCRIT 44.7 % (42.0-52.0); HEMOGLOBIN 14.5 gm/dL (14.0-18.0); LYMPHOCYTES 14.2 % (24.0-44.0); MCH 26.4 pg (26.0-34.0); MCHC 32.5 g/dL (28.0-37.0); MCV 81.2 fL (80.0-100.0); MONOCYTES 6.1 % (1.0-8.0); PLATELET COUNT 247 thou/uL (150-400); POLYS 78.2 % (36.0-66.0); RBC 5.51 mil/uL (4.50-6.00); RDW 13.8 % (10.5-14.5); WBC 10.9 thou/uL (4.0-11.0)
[2019-11-16 19:39] LABS: ANION GAP 12 mmol/L (7-16); BUN 18 mg/dL (7-18); CALCIUM 8.9 mg/dL (8.5-10.1); CHLORIDE 102 mmol/L (98-107); CO2 23 mmol/L (21-32); CREATININE 1.4 mg/dL (0.7-1.3); GLUCOSE 115 mg/dL (74-106); POTASSIUM 4.1 mmol/L (3.5-5.1); SODIUM 137 mmol/L (136-145)
[2019-11-16 19:49] LABS: LIPASE 171 U/L (73-393); SGOT 29 U/L (15-37); SGPT 30 U/L (30-65); TOTAL BILIRUBIN 0.6 mg/dL (0.2-1.0); TOTAL PROTEIN 7.9 g/dL (6.4-8.2); TROPONIN-I <0.06 ng/mL (<0.06)
[2019-11-16 20:18] LABS: URINE BILIRUBIN NEGATIVE (Negative); URINE BLOOD NEGATIVE (Negative); URINE CLARITY CLEAR; URINE COLOR YELLOW; URINE GLUCOSE-RANDOM* 3+ (Negative); URINE KETONES NEGATIVE (Negative); URINE LEUKOCYTES-REFLEX NEGATIVE (Negative); URINE NITRITE-REFLEX NEGATIVE (Negative); URINE PROTEIN (DIPSTICK) NEGATIVE (Negative); URINE SPECIFIC GRAVITY 1.025 (1.005-1.035); URINE UROBILINOGEN 0.2 E.U./dl (0.2-1.0)
[2019-11-16] MEDS ORDERED: ZOFRAN ODT4 MG PO (21:00)
[2019-11-16 21:12] VITALS: BP 147/96
--- NOTE | 2019-11-17 09:05 | EKG ---
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: [facility] : 1965 Requested By: Seymour Brown Order Number: [id number] MD: Jonathan Parr Measurements Intervals [place] Rate: 70 P: 30 MN: 162 QRS: 36 QRSD: 91 T: 25 QT: 557 QTc: 602 Interpretive Statements Sinus rhythm Nonspecific ST segment abnormality Prolonged QT interval Compared to ECG 11/08/2019 09:44:12 Prolonged QT interval now present Ventricular premature complex(es) no longer present Electronically Signed On 11-17-2019 9:03:07 CDT by Jonathan Parr [email or web address] <ELECTRONICALLY SIGNED> By: Jonathan Parr MD, [facility] 11/17/19902 06 06 Jonathan Parr MD, [facility] /EPI
== END 2019-11-16 21:29 | disposition home or self-care (01) ==
LOC: ER 18:49
PROVIDERS: Emergency Medicine
DX: R11.2 Nausea with vomiting, unspecified (principal); I10 Essential (primary) hypertension; M10.9 Gout, unspecified; E78.5 Hyperlipidemia, unspecified; Z79.899 Other long term (current) drug therapy

== ENCOUNTER → 2020-08-18 | Outpatient (CLI) | payer BC, OTHER ==
[~2020-08-18] MED LIST changes: +ZOFRAN ODT4 MG PO
== END ==
LOC: SJCVCIMAG 13:39
PROVIDERS: ATTEND Internal Medicine Cardiovascular Disease
DX: I11.9 Hypertensive heart disease without heart failure (principal); I25.5 Ischemic cardiomyopathy; E78.5 Hyperlipidemia, unspecified; E11.9 Type 2 diabetes mellitus without complications; G47.33 Obstructive sleep apnea (adult) (pediatric); E66.9 Obesity, unspecified; Z95.810 Presence of automatic (implantable) cardiac defibrillator

== ENCOUNTER → 2021-06-14 | Outpatient (CLI) | payer BC, OTHER | LOC: SJCVC 09:10 | PROVIDERS: ATTEND Internal Medicine Cardiovascular Disease | DX: R94.31 Abnormal electrocardiogram [ECG] [EKG] (principal); I47.2 Ventricular tachycardia; I50.20 Unspecified systolic (congestive) heart failure; E78.5 Hyperlipidemia, unspecified; I10 Essential (primary) hypertension; G47.33 Obstructive sleep apnea (adult) (pediatric); E11.9 Type 2 diabetes mellitus without complications; E66.01 Morbid (severe) obesity due to excess calories; Z95.810 Presence of automatic (implantable) cardiac defibrillator; Z88.8 Allergy status to other drugs, medicaments and biological substances; Z72.89 Other problems related to lifestyle; Z79.82 Long term (current) use of aspirin; Z79.899 Other long term (current) drug therapy; Z82.49 Family history of ischemic heart disease and other diseases of the circulatory system ==